=== PATIENT | male | born 1995 | race Caucasian/White ===

== ENCOUNTER 2017-01-19 22:08 | Emergency (ER) | payer OTHER ==
[2017-01-19 22:13] VITALS: TEMP 97.7
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
[2017-01-19] MEDS ORDERED: CEPHALEXIN 500 MG CAP PO ONE (23:09)
[2017-01-19] MEDS ORDERED: CEPHALEXIN 500MG PREPACK#4 BTL TAKEHOME ONE (23:09)
[2017-01-20 00:01] VITALS: BP 125/59; PULSE 61; RESP 18; O2SAT 95
== END 2017-01-20 | disposition home or self-care (01) ==
PROC: 0HQKXZZ Repair Right Lower Leg Skin, External Approach (ICD-10-PCS; principal; 2017-01-19)
DX: S81.011A Laceration without foreign body, right knee, initial encounter (principal); S50.01XA Contusion of right elbow, initial encounter; V18.9XXA Unspecified pedal cyclist injured in noncollision transport accident in traffic accident, initial encounter